=== PATIENT | male | born 1975 | race Two or more races ===

== ENCOUNTER 2019-12-19 07:53 | Outpatient (REF) | payer OTHER, SELFPAY ==
--- NOTE | 2019-12-19 07:58 | MR_ITS ---
EXAMINATION: MRI LEFT SHOULDER WITHOUT CONTRAST CLINICAL INFORMATION: Unspecified disorder of synovium and tendon. Patient reports pain in left shoulder COMPARISON: None. TECHNIQUE: MRI of the left shoulder was performed on a high-field 1.5 [employer] MRI scanner. FINDINGS: ROTATOR CUFF: Infraspinatus: there is a punctate area of intermediate heterogeneity at the insertion of the infraspinatus tendon compatible tendinosis or tiny 1 mm intrasubstance partial tear. Muscle normal. Subscapularis: Small focus of ill-defined increased signal at the insertion likely reflects a small interstitial intrasubstance partial tearing but no measurable defect or tendon retraction. The muscle is normal. Supraspinatus normal. Teres minor normal. BICEPS TENDON: Normal. 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 There is mild concavity of the undersurface of the acromion. There is no subacromial spur. Subacromial subdeltoid bursa: Normal. LABRUM/CAPSULE: Is some mild signal abnormality along the base of the posterior labrum likely reflecting a nondisplaced degenerative tear. Remaining portions of the labrum unremarkable. GLENOHUMERAL JOINT: There are marginal osteophytes along the inferior aspect of the humeral head.d There is subchondral cystic change and cartilage thinning along the posterior rim of the glenoid. There is also high-grade cartilage loss along the apex of the humeral head over approximately 2 cm medial to lateral with associated subchondral cystic change. Overall mild to moderate glenohumeral arthrosis. IMPRESSION: Minimal abnormality of the infraspinatus compatible tendinosis and perhaps small tiny intrasubstance partial tear at the insertion. 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 Nondisplaced degenerative tearing along the base of the posterior labrum Moderate arthrosis of the acromioclavicular joint.
== END 2019-12-19 07:54 | disposition home or self-care (01) ==
LOC: HO.MRI 07:53
PROVIDERS: PCP Internal Medicine; Visit Provider Internal Medicine
DX: M25.512 Pain in left shoulder (principal)
CPT/HCPCS: 73221

== ENCOUNTER → 2020-01-16 09:50 | Outpatient (BNVA) | payer OTHER, SELFPAY | PROVIDERS: PCP Internal Medicine; Referring Provider Internal Medicine; Visit Provider Orthopaedic Surgery | DX: M89.8X1 Other specified disorders of bone, shoulder (principal); M25.512 Pain in left shoulder | CPT/HCPCS: 99202 ==

== ENCOUNTER 2020-02-19 10:07 | Outpatient (RCR) | payer OTHER, SELFPAY ==
--- NOTE | 2020-02-19 14:21 | MHC.PT.EP ---
[facility] [place] Office [place] Office [place] Office [address] Paul Pelaez [address] [phone] F: [phone] F: [phone] F: [phone] F: [phone] Physical Therapy Plan of Care Date of Evaluation: 02/19/20 Date of Surgery: Diagnosis: left shoulder Assessment: The patient has decreased shoulder ROM, and strength, significant trunk kyphosis and hypomobility in his thoracic spine. At this time he is having radicular pain with certain movements and after a Monica mechanical assessment he is showing an extension directional preference. He was educated on posture improvement and behavior modification to decrease pain aggravation. Frequency and Duration: The patient will be seen 2x/week x 4 weeks Short Term Goals: -Pt to able to demonstrate proper sitting posture with the use of a lumbar roll to decrease aggravating factors. - Pt to be able to demonstrate proper posture for common leisure activities such as crocheting and phone/tablet use. 2 weeks - For the patient to demonstrate proper upright sitting posture with use of the lumbar roll to improve compliance and carryover. Chargem[employer] Specialist Goals: 4 weeks - The patient to have greater than 160 degrees of flexion and abduction to show improved functional ROM. 4 weeks ? The patient to have 5/5 strength with flexion and abduction to demonstrate functional strength 4 weeks ? The patient to be able to return to all functional reaching, self care ADL's without any limitation from pain or loss of ROM. Treatment Plan: Modalities to reduce pain, spasms and effusion. Manual therapy to restore motion and function. Therapeutic exercise to improve strength and flexibility. Neuromuscular re-education for posture and balance. Therapeutic activities to return to functional activities of daily living. Electronically signed by: Li Torres PT DPT Please sign and return to therapist. Thank you for your referral.
--- NOTE | 2020-05-15 08:30 | MHC.PT.DC ---
[facility] [place] Office [place] Office [place] Office [address] Paul Pelaez [address] [phone] F: [phone] F: [phone] F: [phone] F: [phone] Physical Therapy Discharge Report Diagnosis: left shoulder Date of Surgery: Date of Evaluation: 02/19/20 Date of Discharge: 03/21/20 Treatments to Date: 1 Cancellations to Date: 0 No Shows to Date: 0 Discharge Status: Visit Non-compliance Discharge Summary: Pt had improvement or centralization with cervical and thoracic extension. The patient was educated on activity modification and extension based exercises for thoracic and cervical spine. Pt did not return to subsequent visits. He did not finish his POC. Electronically signed by: Li Torres PT DPT Please sign and return to therapist. Thank you for your referral.
== END 2020-05-15 09:00 | disposition other institution (70) ==
LOC: HO.PT 10:07
PROVIDERS: PCP Internal Medicine; Visit Provider Orthopaedic Surgery
DX: M89.8X1 Other specified disorders of bone, shoulder (principal)
CPT/HCPCS: 97110; 97112; 97162

== ENCOUNTER → 2020-03-19 08:52 | Outpatient (BNVA) | payer OTHER, SELFPAY | PROVIDERS: PCP Internal Medicine; Visit Provider Surgery | DX: C21.0 Malignant neoplasm of anus, unspecified (principal) | CPT/HCPCS: 46600; 99212 ==

== ENCOUNTER 2021-02-17 10:11 | Outpatient (REF) | payer OTHER, SELFPAY | END 2021-02-17 10:12 | disposition home or self-care (01) | LOC: HO.LAB 10:11 | PROVIDERS: Visit Provider Internal Medicine | DX: Z20.822 Contact with and (suspected) exposure to COVID-19 (principal) | CPT/HCPCS: C9803; U0003; U0005 ==

== ENCOUNTER 2021-07-30 08:06 | Outpatient (REF) | payer OTHER, SELFPAY ==
--- NOTE | ~2021-07-30 | CT_ITS ---
EXAMINATION: CT CHEST, ABDOMEN AND PELVIS WITHOUT CONTRAST CLINICAL INFORMATION: Anal cancer for surveillance. COMPARISON: CT chest without contrast 10/04/2019. TECHNIQUE: 5 mm thin axial and reformatted 3 mm thin sagittal and coronal images of chest, abdomen and pelvis were obtained without contrast. DLP: 784 mGy-cm FINDINGS: CHEST: Lungs: The lungs are well-expanded and clear of acute pneumonic process. No pulmonary nodules, mass or consolidation seen. Minimal atelectatic changes are seen in the lingula. Mediastinum: The thyroid lobes are symmetrical with punctate calcification in the lower pole left thyroid lobe. The central trachea and the bronchi are widely patent. Minimal residual thymic tissue seen in the anterior mediastinum. Heart size and the great vessels are normal caliber. No pericardial effusion seen. Pleura: There is no pleural effusion, thickening or calcification. Axilla: No abnormal-size axillary lymph nodes seen. The chest wall appears unremarkable. ABDOMEN AND PELVIS: Liver, Gallbladder and Biliary Tracts: The liver is normal size, shape and position. No focal lesion seen, however, limited due to lack of IV contrast. No intrahepatic ductal dilatation. There is a solitary gallstone without wall thickening. Spleen: Unremarkable. Pancreas: Unremarkable. Adrenal Glands: Unremarkable. Kidneys, Ureter and Bladder: Both kidneys are normal size, shape and position. There is a nonobstructive 1 mm radiopaque calculi mid pole calyx left kidney sagittal image 31/5. No additional radiopaque calculi seen. Lymphovascular Structures: The abdominal aorta is normal caliber. No abnormal-size retroperitoneal or mesenteric lymph nodes seen. GI Tract: There is scattered stool, oral contrast and gas seen throughout the colon without any significant distention. The appendix and the small-bowel loops are normal caliber. No inflammatory process seen in the abdomen. Abdominal Wall: Unremarkable. Pelvis: The urinary bladder is nondistended. The prostate gland is normal. There is no soft tissue mass in the perineum or lower pelvic region. No abnormal lymph nodes seen. No abnormal-size inguinal or pelvic lymph nodes. Osseous Structures: Unremarkable CT/CT abdomen pelvis wo con IMPRESSION: Unremarkable CT chest exam except for a punctate calcification in the lower pole of left thyroid lobe. Unremarkable abdomen and pelvic exam. Especially no residual mass or lymph nodes seen in the lower pelvis or the perineal region. 1 mm nonobstructive radiopaque calculi mid pole left kidney, new since the previous exam 10/04/2019.
== END 2021-07-30 08:07 | disposition home or self-care (01) ==
LOC: HO.CT 08:06
PROVIDERS: PCP Internal Medicine; Visit Provider Internal Medicine
DX: C21.0 Malignant neoplasm of anus, unspecified (principal)
CPT/HCPCS: 71250; 74176

== ENCOUNTER 2022-02-07 07:05 | Outpatient (REF) | payer OTHER, SELFPAY ==
--- NOTE | ~2022-02-07 | CT_ITS ---
EXAMINATION: CT CHEST WITH CONTRAST CLINICAL INFORMATION: Anal cancer. Increasing CEA. COMPARISON: Previous chest CT July 2021 TECHNIQUE: Multidetector volumetric CT imaging of the chest was obtained after the administration of 85 mL of Omnipaque 350 intravenous contrast without immediate adverse reactions. Axial MIP volume rendering provided. Sagittal and coronal reformatted images were obtained. This CT examination was performed using dose optimization techniques as appropriate, variously including the following: *Automated exposure control *Adjustment of mA and/or kV according to patient size (this includes techniques or standardized protocols for targeted exams where dose is matched to indication/reason for exam; i.e. extremities or head) *Use of iterative reconstruction technique DLP: 187 mGy-cm FINDINGS: LIVESTOCK EXHIBITOR: Unremarkable LUNGS: There is heterogeneous attenuation in the lungs probably representing a mosaic attenuation related to air trapping. The lungs are otherwise clear. No pulmonary nodule. MEDIASTINUM: The mediastinum is normal. There are small mediastinal and bilateral hilar lymph nodes that are stable. No enlarged lymph nodes. PLEURA: There is no pleural effusion. No pleural mass or thickening. AXILLA: No lymphadenopathy. OSSEOUS STRUCTURES: Unremarkable. CT/CT chest w IV con IMPRESSION: No evidence of metastatic disease. Fleischner guidelines were followed.
--- NOTE | ~2022-02-07 | CT_ITS ---
EXAMINATION: CT ABDOMEN AND PELVIS WITH CONTRAST CLINICAL INFORMATION: Anal cancer. Increasing CEA level. COMPARISON: Previous CT of the abdomen and pelvis most recent July 2021 TECHNIQUE: Multidetector volumetric images were obtained from the superior aspect of the liver through the pubic symphysis following administration 85 mL of Omnipaque 350 intravenous contrast. Sagittal and coronal reformatted images were obtained on the technologist's workstation. Oral contrast: Yes This CT examination was performed using dose optimization techniques as appropriate, variously including the following: *Automated exposure control *Adjustment of mA and/or kV according to patient size (this includes techniques or standardized protocols for targeted exams where dose is matched to indication/reason for exam; i.e. extremities or head) *Use of iterative reconstruction technique DLP: 443 mGy-cm FINDINGS: LUNG BASES: The visualized lung bases are unremarkable. LIVER, GALLBLADDER, AND BILIARY TREE: The liver is normal in size, shape, and attenuation. No focal hepatic lesion or biliary ductal dilatation is present. Gallstones. PANCREAS: Unremarkable. SPLEEN: Unremarkable. ADRENAL GLANDS: Unremarkable. KIDNEYS AND URETERS: The kidneys are normal in size, shape, and attenuation. No hydronephrosis, hydroureter, or calculi seen. No perinephric stranding. BLADDER: Unremarkable. GASTROINTESTINAL TRACT: Mild diverticulosis of the colon. The small and large bowel are otherwise unremarkable. The appendix is unremarkable. ABDOMINAL WALL: Small umbilical hernia containing fat. LYMPH NODES: Small bilateral inguinal lymph nodes. No enlarged lymph nodes. VASCULAR: Unremarkable. PELVIC VISCERA: Unremarkable. OSSEOUS STRUCTURES: Unremarkable. CT/CT abdomen pelvis w IV con IMPRESSION: Stable exam. No evidence of metastatic disease. Fleischner guidelines were followed.
[2022-02-07] MEDS: iohexoL 350 MG/ML 100 ML INFUS..BTL IV (09:49)
== END 2022-02-07 07:06 | disposition home or self-care (01) ==
LOC: HO.CT 07:05
PROVIDERS: PCP Internal Medicine; Visit Provider Internal Medicine
DX: C21.0 Malignant neoplasm of anus, unspecified (principal)
CPT/HCPCS: 71260; 74177; Q9967

== ENCOUNTER 2022-07-25 07:27 | Outpatient (REF) | payer OTHER, SELFPAY ==
[2022-07-25 07:38] LABS: MANUAL DIFF FLAG NO
[2022-07-25 08:04] LABS: Basophils Absolute Auto 0.1 X10*3/uL (0.0-0.2); Basophils Percent Auto 1.1 % (0-2); Eosinophils Absolute Auto 0.3 X10*3/uL (0.0-0.4); Eosinophils Percent Auto 3.6 % (0-4); Hematocrit 42.6 % (42.0-52.0); Hemoglobin 14.3 g/dl (14.0-18.0); Imm Gran Abs Auto 0.03 X10*3/uL (0.00-0.03); Imm Gran Pct Auto 0.4 % (0.0-0.4); Lymphocytes Absolute Auto 2.7 X10*3/uL (1.2-4.9); Lymphocytes Percent Auto 32.3 % (20-40); Mean Corpuscular HGB Conc 33.6 g/dl (31.0-36.0); Mean Corpuscular Hemoglobin 31.6 pg (27.0-33.0); Mean Platelet Volume 9.1 fL (9.4-12.4); Monocytes Absolute Auto 0.7 X10*3/uL (0.1-1.2); Monocytes Percent Auto 8.6 % (2-11); Neutrophils Absolute Auto 4.5 x10*3/uL (2.0-8.3); Platelet Count 326 X10*3/uL (160-400); Red Blood Count 4.53 X10*6/uL (4.60-5.80); Red Cell Distribution Width 14.1 % (11.0-16.0); White Blood Count 8.4 X10*3/uL (4.8-10.8)
[2022-07-25 08:41] LABS: Alanine Aminotransferase 24 U/L (0-40); Albumin Level 4.7 g/dL (3.5-5.0); Alkaline Phosphatase 75 U/L (39-117); Anion Gap 14 (12-20); Aspartate Amino Transferase 24 U/L (5-37); Bilirubin Total 0.4 mg/dL (0.0-1.0); Blood Urea Nitrogen 8 mg/dL (9-16); Calcium 9.7 mg/dL (8.4-10.2); Carbon Dioxide 25 mmol/L (22-29); Chloride 102 mmol/L (96-108); Cholesterol 332 mg/dL; Estimated Glomerular Filt Rate 51; Glucose Fasting 99 mg/dL (60-99); HDL Cholesterol 36 mg/dL; LDL Cholesterol Calculated 251 mg/dl; Potassium 4.3 mmol/L (3.3-5.1); Sodium 137 mmol/L (135-145); Total Protein 8.5 g/dL (6.5-8.0); Triglycerides 229 mg/dL
[2022-07-25 09:05] LABS: TSH reflex Free T4 > 100.00 uIU/mL (0.32-4.0); Vitamin D 25-OH Total 10.5 ng/mL (>30)
[2022-07-25 10:00] LABS: Appearance Urine Clear; Color Urine Yellow; Glucose Urine UA Negative (Negative); Leukocyte Esterase Urine Trace (Negative); Nitrite Urine Negative (Negative); PH 6.5 (5.0-9.0); UMIC TRIGGER UACC YES; Urine Blood Negative (Negative); Urine Ketones Trace mg/dL (Negative); Urine Protein Trace mg/dL (Neg-Trace)
[2022-07-25 10:08] LABS: Bacteria Urine None Seen (None Seen); Hyaline Casts Urine 0-2 /LPF (0-2); Squamous Epithelial Cell Urine 0-2 /HPF (0-2); WBC Urine 0-5 /HPF (0-5)
[2022-07-25 10:12] LABS: Free T4 (Free Thyroxine) < 0.42 ng/dL (0.71-1.85)
== END 2022-07-25 07:28 | disposition home or self-care (01) ==
LOC: HO.LAB 07:27
PROVIDERS: Absent Provider Internal Medicine; PCP Internal Medicine; Visit Provider Nurse Practitioner Family
DX: R53.83 Other fatigue (principal); E78.00 Pure hypercholesterolemia, unspecified; E55.9 Vitamin D deficiency, unspecified
CPT/HCPCS: 36415; 80053; 80061; 81001; 81003; 82306; 84439; 84443; 85025

== ENCOUNTER → 2022-08-15 14:57 | Outpatient (REF) | payer OTHER, SELFPAY | LOC: HO.SL 14:57 | PROVIDERS: PCP Internal Medicine; Visit Provider Nurse Practitioner Family | DX: R06.83 Snoring (principal); R53.83 Other fatigue | CPT/HCPCS: 95806 ==

== ENCOUNTER 2023-02-28 12:45 | Outpatient (AMB) | payer OTHER, SELFPAY ==
[2023-02-28 12:48] VITALS: BP 116/78; PULSE 94; O2SAT 96; BMI 30.7
--- NOTE | 2023-02-28 12:48 | A.OFFPC_ITS ---
Vital Signs 02/28/23 12:48 Height 5 ft 11 in Weight 220 lb 3 oz BMI 30.7 BP 116/78 Blood Pressure Location Lt brachial Position Sitting Pulse 94 Pulse Source Pulse Oximeter Pulse Oximetry (%) 96 Oxygen Delivery Method Room Air Intake Visit Reasons: pe Doctor Of Veterinary Medicine Required: No Accompanied by: Self / Same As Patient Allergies shellfish derived Allergy (Unknown, Verified 02/28/23 13:04) Anaphylaxis varenicline Allergy (Unknown, Verified 02/28/23 13:04) mood swings, vomiting barium sulfate Adverse Reaction (Unknown, Verified 02/28/23 13:04) mood swings, vomiting ENVIROMENTAL Allergy (Intermediate, Uncoded 02/28/23 13:04) SWOLLEN EYES Medication List - Last Reconciled 02/28/23 by Jani Guillen MD cholecalciferol (vitamin D3) 50 mcg PO DAILY 90 days levothyroxine 25 mcg PO DAILY 30 days montelukast (Singulair) 10 mg PO DAILY 90 days Ventolin HFA 90 mcg/actuation (albuterol sulfate) 2 puffs inhalation Q6H PRN 90 days NS Tobacco use date assessed: 02/28/23 Dental Screening Dental Screen Date: 02/28/23 Did you have a dental visit in the last 12 months?: Yes Did you have a dental problem in the last 6 months where you did not have access to dental care?: No Was dental information given to patient?: Patient has dentist HPI pe HPI Details Patient comes in today for his annual physical examination States that he feels okay except for increased pain in his right shoulder for the past couple of weeks Does not recall and recent injury or trauma to his right shoulder He denies any headaches or dizziness Denies any chest pains, no SOB No nausea/vomiting, no abdominal pain No change in bowel habits noted He denies any acute urinary symptoms Needs a couple of his Rx refilled Was not able to get his previously ordered labs done prior to his appt today [facility] Medical History (Updated 02/28/23 @ 13:28 by Jani Guillen MD) Mixed hyperlipidemia Vitamin D deficiency Acquired hypothyroidism Obesity (BMI 30-39.9) Allergic rhinitis Pure hypercholesterolemia Rotator cuff tear arthropathy of left shoulder Anal squamous cell carcinoma Diverticulitis Asthma Surgical History (Updated 02/28/23 @ 13:32 by Jani Guillen MD) Squamous cell carcinoma of perianal region (12/18/18) Family History Father No problems noted. Mother History of breast cancer, Onset Age: 49 Daughter In good health Sister In good health Sister In good health Social History Household Members: Children and None Housing: House Are you a primary care support representative to a significant other at home: No Do you presently have visiting nurse or other home services: No Alcohol intake: former Patient Tobacco Use Status: Current everyday Tobacco user Tobacco use type: Cigarette Cigarettes Per Day: 10 e-Cigarette/Vaping Use: Never Used Second Hand Smoke Exposure: No Advance Directives Date on File: 02/13/19 service: No Current occupational status: employed Current occupation: maintenance, right handed Current occupational exposures/hazards: No Cognitive needs: No Hearing needs: No Vision needs: Yes Questionnaire PHQ-9 Over the last 2 weeks, how often have you been bothered by any of the following problems? 1. Little interest or pleasure in doing things: not at all 2. Feeling down, depressed, or hopeless: not at all 3. Trouble falling or staying asleep, or sleeping too much: not at all 4. Feeling tired or having little energy: not at all 5. Poor appetite or overeating: not at all 6. Feeling bad about yourself - or that you are a failure or have let yourself or your family down: not at all 7. Trouble concentrating on things, such as reading the newspaper or watching television: not at all 8. Moving or speaking so slowly that other people could have noticed. Or the opposite - being so fidgety or restless that you have been moving around a lot more than usual: not at all 9. Thoughts that you would be better off or of hurting yourself in some way: not at all Total score: 0 Depression Screening Interpretation: Negative Depression Screening Done: Yes 73505 - PHQ-9 Billing: Yes Source: Developed by Drs. Kenny Vale, Cora Akhtar, Felipe Pineda and colleagues, with an educational remi from [employer]. Thrive Questionnaire Date Thrive assessed: 02/28/23 I am a: Patient What is your living situation today?: I have a steady place to live Within the past 12 months, did the food you bought not last and you didn't have the money to get more?: Never true Within the past 12 months, did you worry whether your food would run out before you got money to buy more?: Never true Do you have trouble paying for medicines?: No Do you have trouble getting transportation to medical appointments?: No Do you have trouble paying your heating and electricity bill?: No Do you have trouble taking care of your child, family member or friend?: No Do you have trouble with day-to-day activities such as bathing, preparing meals, shopping, managing finances, etc.?: No Are you currently unemployed and looking for a job?: No Are you interested in more education?: No Please select the resources that you would like help with: None Currently or been in a relationship where the following occur: no concerns reported AUDIT C Alcohol Use Questionnaire (AUDIT-C) 1. How often do you have a drink containing alcohol?: Monthly or less 2. How many drinks containing alcohol do you have on a typical day when you are drinking?: 3 or 4 3. How often do you have six or more drinks on one occasion?: Never Total Score: 2 Score Reviewed/Action Taken: Yes ROSEANN-7 AMB Questionnaire ROSEANN-7 Date ROSEANN - 7 assessed: 02/28/23 Feeling nervous, anxious, or on edge: 1 = Several days Not being able to stop or control worryin = Not at all Worrying too much about different things: 0 = Not at all Trouble relaxin = Not at all Being so restless that it is hard to sit still: 0 = Not at all Becoming easily annoyed or irritable: 0 = Not at all Feeling afraid as if something awful might happen: 0 = Not at all Total ROSEANN-7 score (0-4 normal; 5-9 mild; 10-14 moderate; 15-21 severe): 1 Source: Developed by Drs. Kenny Vale, Cora Akhtar, Felipe Pineda and colleagues, with an educational remi from [employer]. Review of Systems Const Denies chills, Denies fatigue, Denies fever(s), Denies headache(s), Denies malaise and Denies weakness Eyes Denies blurry vision, Denies change in vision, Denies irritation and Denies it arti eyes ENT Denies dysphagia, Denies dizziness, Denies otalgia, Denies headache(s), Denies nasal congestion, Denies neck pain, Denies odynophagia and Denies sore throat Card Denies chest pain, Denies rapid heart rate, Denies irregular heart rhythm, Denies palpitations and Denies dyspnea Resp Denies chest congestion, Denies cough, Denies dyspnea and Denies wheezing GI Denies abdominal pain, Denies bloating, Denies constipation, Denies dysphagia, Denies heartburn, Denies diarrhea, Denies nausea, Denies odynophagia and Denies vomiting Denies hematuria, Denies difficulty urinating, Denies dysuria, Denies urinary frequency and Denies urinary urgency Musc Denies back pain, Reports arthralgias (increased in the right shoulder), Denies joint swelling, Denies muscle weakness and Denies neck pain Skin/Breast Denies change in pigmentation, Denies lesions, Denies rash and Denies unusual bruising Neuro Denies dizziness, Denies headache(s), Denies paresthesias and Denies weakness Endo Denies fatigue and Denies palpitations Aller/Immun Denies itchy eyes and Denies wheezing Physical exam (Primary Care) Vital Signs: Last Vital Signs Pulse 94 02/28/23 12:48 BP 116/78 02/28/23 12:48 Pulse Ox 96 02/28/23 12:48 Oxygen Delivery Method Room Air 02/28/23 12:48 BMI result Body Mass Index 30.7 Tobacco/Smoking Status: Tobacco use Status Tobacco use date assessed 02/28/23 02/28/23 12:55 Patient Tobacco Use Status Current everyday Tobacco 02/28/23 12:48 Tobacco use type Cigarette 02/28/23 12:48 e-Cigarette/Vaping Use Never Used 02/28/23 12:48 PHQ-9: PHQ-9 Score PHQ-9: Total score 0 02/28/23 12:55 Depression Screening Interpretation: Negative Thrive Assessment: Date of Thrive Assessment Date Thrive assessed 02/28/23 12 12:55 Currently or been in a relationship where the following occur: no concerns reported Const General: no acute distress, alert and awake Orientation/consciousness: patient oriented x3 HENMT Head: Yes normocephalic and Yes atraumatic Ears: external ears normal, TM's normal bilaterally and EAC's normal General nose exam: No nasal discharge present Face and sinus: Yes normal facial exam and Yes sinuses nontender Teeth and gingiva: dentition normal Throat: Yes posterior oropharynx normal and Yes tonsils normal (no TP congestion) Eyes Eyelids: Yes eyelids normal Conjunctivae: conjunctivae normal Pupils: Equal, round and reactive pupils present EOM: EOMs intact bilaterally Neck Neck: Yes no lymphadenopathy and Yes supple Thyroid: Thyroid normal Resp Auscultation: clear to auscultation bilaterally, no rales and no wheezes Cardio Rate: regular rate Rhythm: regular rhythm Heart sounds: no murmurs GI Palpation (GI): Soft to palpation, nontender and No hepatosplenomegaly present Auscultation: normal bowel sounds General: Yes no CVA tenderness Back/Spine/Pelvis Back: no CVA tenderness Thoracic/Lumbar Spine: thoracic and lumbar spine normal to inspection Skin Lesions: no lesions Rashes: no rashes Neuro General: patient oriented x3, moves all extremities, no focal motor deficits and CN's II-XI intact bilaterally Cranial nerves: Yes Equal, round and reactive pupils present Cognition (Neuro): normal cognition Gait exam (Neuro): Normal gait present Extrem General: Yes no clubbing, cyanosis or edema Right upper extremity: shoulder/upper arm Details: tenderness Location: of the A-C joint; no swelling Assessment and Plan Assessment & Plan (1) Annual physical exam: Code(s): Z00.00 - Encounter for general adult medical examination without abnormal findings Plan: Check labs He had a colonoscopy done by Dr. Romero back on 03/14/2018 when he had a severe bout of diverticulitis back then - colonoscopy was negative and he was advised to repeat colonoscopy starting at 47 y/o (2) Mixed hyperlipidemia: Code(s): E78.2 - Mixed hyperlipidemia Plan: Patient reminded that his cholesterol levels were still significantly elevated when they were last checked in July 2022 - total cholesterol was at 332 mg/dl and LDL cholesterol was at 251 mg/dl (they were previously at 196 mg/dl and 135 mg/dl respectively back in 2018) Reinforced low cholesterol diet Will have patient recheck his labs and fasting lipids JULIA for follow up (3) Acquired hypothyroidism: Code(s): E03.9 - Hypothyroidism, unspecified Plan: Continue Levothyroxine 25 mcg QD Will have patient recheck his TFTs JULIA for follow up (4) Asthma: Code(s): J45.909 - Unspecified asthma, uncomplicated Qualifiers: Asthma severity: mild Asthma persistence: persistent Asthma complication type: uncomplicated Qualified Code(s): J45.30 - Mild persistent asthma, uncomplicated Plan: Appears well-controlled on his current Rx Continue Montelukast 10 mg Q PM and Albuterol HFA (Ventolin HFA) 1 to 2 inhalations every 6 hours PRN (Rx refilled) (5) Vitamin D deficiency: Code(s): E55.9 - Vitamin D deficiency, unspecified Plan: Will recheck his Vitamin D level for follow up Was supposed to be on Vitamin D3 2000 units QD but admits that he has not been taking this for a while now (6) Renal insufficiency: Code(s): N28.9 - Disorder of kidney and ureter, unspecified Plan: Cautioned that his serum creatinine and GFR were still slightly compromised when they were last checked a few months ago Advised that his numbers suggest early CKD (stage 3A based on his serum creatinine and GFR) and if they remain consistent, we will need to monitor his renal function closely going forward Patient is again encouraged to increase his oral fluid intake (7) Primary anal squamous cell carcinoma: Comment: diagnosed in 2019; underwent surgical excision on 12/18/2018; clinical stage T2N0 / stage IIA, p 16 negative. Patient underwent adjuvant Tx with concurrent chemoradiotherapy from 03/18/2019 to 05/19/2019 Code(s): C21.0 - Malignant neoplasm of anus, unspecified Plan: S/P surgical excision in 12/2018 Follow up with oncology as scheduled for continuing surveillance (8) Arthralgia: Code(s): M25.50 - Pain in unspecified joint Qualifiers: Joint pain location: unspecified Qualified Code(s): M25.50 - Pain in unspecified joint Plan: Most likely due to tendinopathies of his elbows and shoulders, which he's had in the past Will consider referring to physical therapy for further management if his symptoms progress Have cautioned patient to avoid taking any NSAIDs in light of his recent compromised renal function (9) Right shoulder pain: Code(s): M25.511 - Pain in right shoulder Qualifiers: Chronicity: unspecified Qualified Code(s): M25.511 - Pain in right shoulder Plan: Possible tendinitis or bursitis of the right shoulder Will send him for x-rays of the right shoulder for further evaluation (10) Smoker: Code(s): F17.200 - Nicotine dependence, unspecified, uncomplicated Plan: Counseled again on smoking cessation (11) Obesity (BMI 30-39.9): Code(s): E66.9 - Obesity, unspecified Plan: Reinforced diet/exercise as tolerated/lose weight - he has lost some weight since his last visit (12) Colon cancer screening: Code(s): Z12.11 - Encounter for screening for malignant neoplasm of colon Plan: Will refer him to GI for repeat colonoscopy Plan Follow up in 4 months Orders: Orders Complete Blood Count Auto Diff Today N28.9 - Disorder of kidney and ureter, unspecified, Z00.00 - Encounter for general adult medical examination without abnormal findings Thyroid Stimulating Hormone Today E03.9 - Hypothyroidism, unspecified, N28.9 - Disorder of kidney and ureter, unspecified, Z00.00 - Encounter for general adult medical examination without abnormal findings Free T4 (Free Thyroxine) Today E03.9 - Hypothyroidism, unspecified, N28.9 - Disorder of kidney and ureter, unspecified, Z00.00 - Encounter for general adult medical examination without abnormal findings Comprehensive [place]. Panel Fast Today E78.00 - Pure hypercholesterolemia, unspecified, N28.9 - Disorder of kidney and ureter, unspecified, Z00.00 - Enc ounter for general adult medical examination without abnormal findings Lipid Panel Today E78.00 - Pure hypercholesterolemia, unspecified, N28.9 - Disorder of kidney and ureter, unspecified, Z00.00 - Encounter for general adult medical examination without abnormal findings UA CC w/rflx Micro + Cult Today N28.9 - Disorder of kidney and ureter, un specified, R30.0 - Dysuria, Z00.00 - Encounter for general adult medical examination without abnormal findings Vitamin D 25-OH Total Today E55.9 - Vitamin D deficiency, unspecified, N28.9 - Disorder of kidney and ureter, unspecified, Z00.00 - Encounter for general adult medical examination without abnormal findings Erythrocyte Sedimentation Rate Today M25.511 - Pain in right shoulder XR shoulder RT min 2V Today M25.511 - Pain in right shoulder Referrals Gastroenterology Referral Z12.11 - Encounter for screening for malignant neoplasm of colon Medications: Refilled levothyroxine Take on an empty stomach, first thing in the morning, with water. Do not eat or drink anything else for 30 minutes afterwards 25 mcg PO DAILY 30 days 90 tabs 3RF E03.9 - Hypothyroidism, unspecified Ventolin HFA 90 mcg/actuation (albuterol sulfate) 2 puffs inhalation Q6H 90 days PRN 18 grams 3RF Shortness Of Breath Or Wheezing NS J45.30 - Mild p ersistent asthma, uncomplicated Coding Level of Care Code Est Pt Prev Care 40-64y(15606) Diagnoses Annual physical exam Z00.00 Mixed hyperlipidemia E78.2 Acquired hypothyroidism E03.9 Mild persistent asthma without complication J45.30 Asthma severity: mild Asthma persistence: persistent Asthma complication type: uncomplicated Vitamin D deficiency E55.9 Renal insufficiency N28.9 Primary anal squamous cell carcinoma C21.0 Arthralgia, unspecified joint M25.50 Joint pain location: unspecified Right shoulder pain, unspecified chronicity M25.511 Chronicity: unspecified Smoker F17.200 Obesity (BMI 30-39.9) E66.9 Colon cancer screening Z12.11
== END 2023-02-28 13:34 | disposition home or self-care (01) ==
PROVIDERS: PCP Internal Medicine; Visit Provider Internal Medicine
DX: Z00.00 Encounter for general adult medical examination without abnormal findings (principal); C21.0 Malignant neoplasm of anus, unspecified; E78.2 Mixed hyperlipidemia; E03.9 Hypothyroidism, unspecified; J45.30 Mild persistent asthma, uncomplicated; E55.9 Vitamin D deficiency, unspecified; N28.9 Disorder of kidney and ureter, unspecified; M25.50 Pain in unspecified joint; M25.511 Pain in right shoulder; F17.200 Nicotine dependence, unspecified, uncomplicated; E66.9 Obesity, unspecified; Z12.11 Encounter for screening for malignant neoplasm of colon
CPT/HCPCS: 99396

== ENCOUNTER 2023-03-29 09:30 | Outpatient (REF) | payer OTHER, SELFPAY ==
--- NOTE | ~2023-03-29 | XR_ITS ---
EXAMINATION: XR SHOULDER, RIGHT CLINICAL INFORMATION: Pain. COMPARISON: None available. TECHNIQUE: AP external rotation, Grashey, scapular Y, and axillary views of the right shoulder. FINDINGS: Bony alignment and mineralization are normal. The glenohumeral joint is intact. The acromioclavicular interval is widened to 1.2 cm. A small well-corticated osseous fragment is seen superior to the head of the right clavicle. The coracoclavicular interval is normal. No acute fracture is seen. There is no soft tissue calcification or foreign body. No right pneumothorax is seen. XR/XR shoulder RT min 2V IMPRESSION: A mild right acromioclavicular separation injury is seen, of indeterminate chronicity.
[2023-03-29 09:44] LABS: MANUAL DIFF FLAG NO
[2023-03-29 09:59] LABS: Basophils Absolute Auto 0.1 X10*3/uL (0.0-0.2); Basophils Percent Auto 1.2 % (0-2); Eosinophils Absolute Auto 0.2 X10*3/uL (0.0-0.4); Eosinophils Percent Auto 2.4 % (0-4); Hematocrit 44.8 % (42.0-52.0); Hemoglobin 15.3 g/dl (14.0-18.0); Imm Gran Abs Auto 0.03 X10*3/uL (0.00-0.03); Imm Gran Pct Auto 0.3 % (0.0-0.4); Lymphocytes Absolute Auto 2.1 X10*3/uL (1.2-4.9); Lymphocytes Percent Auto 22.6 % (20-40); Mean Corpuscular HGB Conc 34.2 g/dl (31.0-36.0); Mean Corpuscular Hemoglobin 31.2 pg (27.0-33.0); Mean Corpuscular Volume 91.2 fL (80.0-98.0); Mean Platelet Volume 9.1 fL (9.4-12.4); Monocytes Absolute Auto 0.8 X10*3/uL (0.1-1.2); Neutrophils Absolute Auto 6.2 x10*3/uL (2.0-8.3); Neutrophils Percent Auto 65.5 % (45-73); Platelet Count 357 X10*3/uL (160-400); Red Blood Count 4.91 X10*6/uL (4.60-5.80); Red Cell Distribution Width 13.1 % (11.0-16.0); White Blood Count 9.5 X10*3/uL (4.8-10.8)
[2023-03-29 10:38] LABS: Alanine Aminotransferase 24 U/L (0-40); Albumin Level 4.4 g/dL (3.5-5.0); Alkaline Phosphatase 86 U/L (39-117); Anion Gap 12 (12-20); Aspartate Amino Transferase 21 U/L (5-37); Bilirubin Total 0.3 mg/dL (0.0-1.0); Blood Urea Nitrogen 9 mg/dL (9-16); Calcium 9.9 mg/dL (8.4-10.2); Carbon Dioxide 25 mmol/L (22-29); Chloride 103 mmol/L (96-108); Cholesterol 241 mg/dL (<200); Estimated Glomerular Filt Rate 58; Glucose Fasting 96 mg/dL (60-99); HDL Cholesterol 38 mg/dL (>40); LDL Cholesterol Calculated 160 mg/dL (<100); Potassium 4.1 mmol/L (3.3-5.1); Sodium 136 mmol/L (135-145); Total Protein 8.2 g/dL (6.5-8.0); Triglycerides 215 mg/dL (<150)
[2023-03-29 10:41] LABS: Erythrocyte Sedimentation Rate 6 MM/HR (0-15)
[2023-03-29 10:57] LABS: Thyroid Stimulating Hormone 30.34 uIU/mL (0.32-4.0); Vitamin D 25-OH Total 23.6 ng/mL (>30)
[2023-03-29 11:52] LABS: Appearance Urine Clear; Color Urine Yellow; Glucose Urine UA Negative (Negative); Leukocyte Esterase Urine Negative (Negative); Nitrite Urine Negative (Negative); Specific Gravity - Urine 1.015 (1.005-1.025); Urine Blood Negative (Negative); Urine Ketones Negative (Negative); Urine Protein Negative (Neg-Trace)
[2023-03-29 12:54] LABS: Creatinine Urine 125.38 mg/dL; Microalbumin Urine < 5.0 mg/L
== END 2023-03-29 09:31 | disposition home or self-care (01) ==
LOC: HO.LAB 09:30
PROVIDERS: PCP Internal Medicine; Visit Provider Internal Medicine
DX: Z00.00 Encounter for general adult medical examination without abnormal findings (principal); E78.2 Mixed hyperlipidemia; E78.00 Pure hypercholesterolemia, unspecified; N28.9 Disorder of kidney and ureter, unspecified; E03.9 Hypothyroidism, unspecified; F17.200 Nicotine dependence, unspecified, uncomplicated; R30.0 Dysuria; E55.9 Vitamin D deficiency, unspecified; M25.511 Pain in right shoulder
CPT/HCPCS: 36415; 73030; 80053; 80061; 81003; 82043; 82306; 82570; 84439; 84443; 85025; 85652

== ENCOUNTER 2023-04-25 11:54 | Outpatient (AMB) | payer OTHER, SELFPAY ==
--- NOTE | 2023-04-25 11:56 | A.OFFVIS_ITS ---
Intake Vital Signs 04/25/23 12:20 Height 5 ft 11 in Weight 224 lb 13.944 oz BMI 31.4 BP 119/81 Blood Pressure Location Rt brachial Position Sitting Pulse 84 Intake Visit Reasons: colonoscopy Screening Intake Note: Patient presents to in office visit today as a new patient for colonoscopy screening. CC: Patient had a colonoscopy done in 03/19/[address] Julio. 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 He is referred by Jani George of [facility] primary care. PMX Asthma Allergic rhinitis Smoker Hypothyroid High cholesterol Renal insufficiency History of rectal cancer Left shoulder tendinopathy with rotator cuff tear History of diverticulitis * SURGICAL HISTORY Surgical excision of rectal carcinoma-[place] * ALLERGIES Shellfish Chantix Barium * [facility]: Laboratory Tests 03/29/23 09:43 WBC 9.5 Hgb 15.3 Hct 44.8 Plt Count 357 Estimated GFR 58 Total Bilirubin 0.3 AST 21 ALT 24 Alkaline Phosphata se 86 TSH 30.34 H Free T4 0.50 L 2019 COLONOSCOPY-[place] PROCEDURE IN DETAIL: Digital rectal examination revealed prostate to be unremarkable. Videocolonoscope was introduced without difficulty. It was navigated into the rectosigmoid sigmoid and up through the descending, transverse, and ascending colon down into the cecal cap. The appendiceal orifice was seen. The ileocecal valve was seen. No mucosal abnormalities were appreciated. The prep was poor. There was a moderate amount of soft solid stool present at the time of the exam. Areas were flushed and suctioned. The scope was slowly withdrawn. Good rotational views. The anorectal verge was clear. In the rectum, there was a diminutive polyp that looked slightly hyperplastic. With his age and past history, it was reasonable to remove this excisionally with cold biopsy forceps. GENERAL IMPRESSION: Negative examination. Rectal polyp. The patient's bout of diverticulitis was in October of 2017. CT showed left-sided lower descending acute diverticulitis. No abscess formation. There was moderate bowel wall thickening at the site and it was felt that because of the area of thickening, a colonoscopy should be done to make sure that there was no underlying lesion present. Current examination had a substandard prep due to the patient's lack of following through on directions. PLAN: I would suggest that when he is re-seen in our office, repeat CBC and stool for occult blood is done. Certainly, I would recommend appropriate colon cancer screening to start at age 47. Further evaluation at this time if everything is negative is probably not necessary. Rupali Romero MD cc: JANI GEORGE MD 03/14/2018 BIOPSY SHOWED HYPERPLASTIC RECTAL POLYP TODAY'S VISIT The only new health problem is hypothyroid, quite severe and they are still titrating the medications. He has changed his diet and is doing IMF and this helps with bloating and gassin ess. Discovering the thyroid disease also helped. His asthma is controlled and he denies any cardiac problems. He was tested for RUBIN but it was negative. There are no prior problems with anesthesia or sedation. NO ID problems. He has a hx of anal cell cancer, but in 2019 his polyps was hyperplastic only. [facility] Medical History (Updated 04/25/23 @ 12:47 by CARMEN Sheikh) Right shoulder pain Obesity (BMI 30-39.9) Annual physical exam Overweight (BMI 25.0-29.9) Anal squamous cell carcinoma Mixed hyperlipidemia Vitamin D deficiency Acquired hypothyroidism Allergic rhinitis Pure hypercholesterolemia Rotator cuff tear arthropathy of left shoulder Diverticulitis Asthma Surgical History H/O colonoscopy Squamous cell carcinoma of perianal region (12/18/18) Family History Father No problems noted. Mother History of breast cancer, Onset Age: 49 Daughter In good health Sister In good health Sister In good health Paternal Uncle Prostate cancer Social History Household Members: Children and None Housing: House Are you a primary health care manager to a significant other at home: No Do you presently have visiting nurse or other home services: No Alcohol intake: former Patient Tobacco Use Status: Current everyday Tobacco user Tobacco use type: Cigarette Cigarettes Per Day: 10 e-Cigarette/Vaping Use: Never Used Second Hand Smoke Exposure: No Advance Directives Date on File: 02/13/19 service: No Current occupational status: employed Current occupation: maintenance, right handed Current occupational exposures/hazards: No Cognitive needs: No Hearing needs: No Vision needs: Yes Review of Systems Const Reports fatigue, Denies fever(s), Denies night sweats, Denies poor appetite, Reports weight gain and Denies weight loss Eyes Details: glasses Reports requires corrective lenses ENT Reports Normal hearing present, Denies dental pain, Denies dysphagia, Denies hearing loss, Denies mouth pain, Denies odynophagia, Denies throat swelling, Denies tongue swelling and Reports other (Dentition adequate) Card Reports no additional complaints Resp Reports no additional complaints GI Details: Denies abdominal pain, Denies melena, Reports bloating, Denies hematochezia, Denies constipation, Denies GI cramping, Denies dysphagia, Denies excessive flatus, Denies early satiety, Denies heartburn, Denies diarrhea, Denies nausea, Denies odynophagia, Denies vomiting and Denies hematemesis Musc Reports myalgias and Reports arthralgias Skin/Breast Denies pruritus, Denies lesions, Denies rash and Denies jaundice Neuro Reports Normal hearing present and Denies Abnormal speech present Endo Reports fatigue Aller/Immun Denies throat swelling and Denies tongue swelling Physical Exam Vital Signs: Last Vital Signs Pulse 84 04/25/23 12:20 BP 119/81 04/25/23 12:20 BMI result Body Mass Index 31.4 Const General: cooperative, no acute distress, well developed and well groomed Nutritional Appearance: well nourished, obese and overweight Orientation/consciousness: oriented to person, oriented to place and oriented to time Limitations: No language barrier, ambulation with cane, ambulation with walker and wheelchair HEENT Head: Yes normocephalic and Yes atraumatic Eyes General: appearance normal, both eyes and all related structures Pupils: Equal, round and reactive pupils present Neck Neck: Yes normal visual inspection and Yes no lymphadenopathy Thyroid: Thyroid normal Resp Effort & Inspection: normal respiratory effort and able to speak in complete sentences Auscultation: clear to auscultation bilaterally Cardio Rate: regular rate Rhythm: regular rhythm Heart sounds: Normal, physiologic split S2 sound present Peripheral pulses: radial pulses present and posterior tibial pulses present GI Inspection: No distended, No Abdominal panniculus present and Yes obesity Palpation (GI): Soft to palpation, nontender, no guarding, not rigid and No hepatosplenomegaly present Percussion: Yes normal to percussion Auscultation: normal bowel sounds Rectal Exam - Male: Yes deferred Skin General skin exam: no rashes or lesions noted, turgor normal, skin not dry, no jaundice, No spider nevi and no striae Rashes: no rashes Nails: normal Neuro General: oriented to person, oriented to place and oriented to time Cranial nerves: Yes Equal, round and reactive pupils present and Yes Normal hearing present Speech: No Abnormal speech present Extrem General: Yes normal to inspection, No clubbing, No cyanosis and No edema Psych Appearance: grossly normal and well kempt Mental Status: mental status grossly normal Speech and movement: Normal speech and movement present Affect: normal affect Attitude: cooperative Thought process: Normal thought process present and not confabulating Thought content: Normal thought content present Insight: Fair insight present (Psych) Judgement: Fair judgement present (Psych) Assessment & Plan Assessment & Plan (1) Pre-op examination: Code(s): Z01.818 - Encounter for other preprocedural examination (2) Colon cancer screening: Code(s): Z12.11 - Encounter for screening for malignant neoplasm of colon (3) Primary anal squamous cell carcinoma: Comment: diagnosed in 2019; underwent surgical excision on 12/18/2018; clinical stage T2N0 / stage IIA, p 16 negative. Patient underwent adjuvant Tx with concurrent chemoradiotherapy from 03/18/2019 to 05/19/2019 Code(s): C21.0 - Malignant neoplasm of anus, unspecified Plan The only new health problem is hypothyroid, quite severe and they are still titrating the medications. He has changed his diet and is doing IMF and this helps with bloating and g assiness. Discovering the thyroid disease also helped. His asthma is controlled and he denies any cardiac problems. He was tested for RUBIN but it was negative. There are no prior problems with anesthesia or sedation. NO ID problems. He has a hx of anal cell cancer, but in 2019 his polyps was hyperplastic only. Orders: Orders Colonoscopy - GI Use Only Today C21.0 - Malignant neoplasm of anus, unspecified, Z01.818 - Encounter for other preprocedural examination, Z12.11 - Encounter for screening for malignant neoplasm of colon Medications: New peg 3350-electrolytes 236-22.74-6.74 -5.86 gram (Golytely) until fecal effluent is clear; do not exceed a total volume of 2,000 mL 240 mL PO Q10M 1 day 4,000 mL 0RF Z12.11 - Encounter for screening for malignant neoplasm of colon bisacodyl (Dulcolax (bisacodyl)) 10 mg (2 x 5 mg) PO BEDTIME 2 days 4 tabs 0RF Coding Level of Care Code New Pt Level 3 (35351) Diagnoses Pre-op examination Z01.818 Colon cancer screening Z12.11 Primary anal squamous cell carcinoma C21.0
[2023-04-25 12:20] VITALS: BP 119/81; PULSE 84; BMI 31.4
== END 2023-04-25 13:44 | disposition home or self-care (01) ==
PROVIDERS: PCP Internal Medicine; Visit Provider Nurse Practitioner
DX: Z01.818 Encounter for other preprocedural examination (principal); Z12.11 Encounter for screening for malignant neoplasm of colon; C21.0 Malignant neoplasm of anus, unspecified
CPT/HCPCS: 99203

== ENCOUNTER → 2023-04-25 11:54 | Outpatient (BNVA) | payer OTHER, SELFPAY | PROVIDERS: PCP Internal Medicine; Visit Provider Nurse Practitioner | DX: Z01.818 Encounter for other preprocedural examination (principal); Z12.11 Encounter for screening for malignant neoplasm of colon; C21.0 Malignant neoplasm of anus, unspecified | CPT/HCPCS: 99202 ==

== ENCOUNTER 2024-03-01 12:52 | Outpatient (REF) | payer OTHER, SELFPAY ==
--- NOTE | ~2024-03-01 | XR_ITS ---
CLINICAL HISTORY: M25.512 - Pain in left shoulder Four views of the left shoulder. COMPARISON: None FINDINGS: Proximal left humerus, the left scapula, and the left clavicle appear intact. Decreased glenohumeral joint space. Prominent osteophytes present along the inferior margin of the humeral head. Widening of the acromioclavicular joint measuring up to 1.5 cm. Coracoclavicular space is maintained. Visualized portions of the left lung are clear. IMPRESSION: 1. Age-indeterminate type 2 acromioclavicular joint injury. 2. [id number] glenohumeral joint degenerative changes. This document has been electronically signed by: Cesario Sin MD on 03/04/2024 19:12:36
--- NOTE | ~2024-03-01 | XR_ITS ---
CLINICAL HISTORY: M25.511 - Pain in right shoulder Radiographs of the right shoulder. COMPARISON: None FINDINGS: Widening of the right acromioclavicular joint measuring up to 1.3 cm. Coracoclavicular joint space is maintained. Humeral head is appropriately seated within the glenoid. Visualized portions of the proximal humerus, scapula and the clavicle appear intact. Tiny osteophytes present along the inferior margin of the glenoid and humeral head. Visualized portions of the right lung are clear. IMPRESSION: 1. Type 2 acromioclavicular joint injury, age-indeterminate. 2. Mild degenerative changes of the glenohumeral joint. This document has been electronically signed by: Cesario Sin MD on 03/04/2024 17:15:55
== END 2024-03-01 12:53 | disposition home or self-care (01) ==
LOC: HO.XRAY 12:52
PROVIDERS: PCP Internal Medicine; Visit Provider Internal Medicine
DX: Z00.01 Encounter for general adult medical examination with abnormal findings (principal); M25.511 Pain in right shoulder; M25.512 Pain in left shoulder; N28.9 Disorder of kidney and ureter, unspecified; E55.9 Vitamin D deficiency, unspecified; E78.2 Mixed hyperlipidemia; E03.9 Hypothyroidism, unspecified; J45.30 Mild persistent asthma, uncomplicated; C21.0 Malignant neoplasm of anus, unspecified; E66.9 Obesity, unspecified; F17.200 Nicotine dependence, unspecified, uncomplicated; Z71.6 Tobacco abuse counseling
CPT/HCPCS: 73030; 96127

== ENCOUNTER 2024-03-01 12:52 | Outpatient (AMB) | payer OTHER, SELFPAY ==
[2024-03-01 12:53] VITALS: BP 108/72; PULSE 75; O2SAT 99
--- NOTE | 2024-03-01 12:53 | A.OFFPC_ITS ---
Vital Signs 03/01/24 12:53 Height 5 ft 11 in Weight 215 lb BMI 30.0 BP 108/72 Blood Pressure Location Lt brachial Position Sitting Pulse 75 Pulse Source Pulse Oximeter Pulse Oximetry (%) 99 Oxygen Delivery Method Room Air Intake Visit Reasons: Annual Exam Soaking Room Operator Required: No Accompanied by: Self / Same As Patient Allergies shellfish derived Allergy (Unknown, Verified 03/01/24 13:15) Anaphylaxis varenicline Allergy (Unknown, Verified 03/01/24 13:15) mood swings, vomiting barium sulfate Adverse Reaction (Unknown, Verified 03/01/24 13:15) mood swings, vomiting ENVIROMENTAL Allergy (Intermediate, Uncoded 03/01/24 13:15) SWOLLEN EYES Medication List - Last Reconciled 03/01/24 by Jani Guillen MD bisacodyl (Dulcolax (bisacodyl)) 10 mg (2 x 5 mg) PO BEDTIME 2 days cholecalciferol (vitamin D3) 50 mcg PO DAILY 90 days levothyroxine 50 mcg PO DAILY 30 days montelukast (Singulair) 10 mg PO DAILY 90 days peg 3350-electrolytes 236-22.74-6.74 -5.86 gram (Golytely) 240 mL PO Q10M 1 day Ventolin HFA 90 mcg/actuation (albuterol sulfate) 2 puffs inhalation Q6H PRN 90 days NS Tobacco use date assessed: 03/01/24 Dental Screening Dental Screen Date: 03/01/24 HPI Annual Exam HPI Details Patient comes in today for his annual physical examination States that he has been experiencing increased pain in both of his shoulders ( worse on the right side) for a while now and feels that his shoulder pains have been slowly getting worse lately Imaging studies of his shoulders done last year revealed (+) mild right acromioclavicular separation injury of indeterminate chronicity on x-rays He also had an MRI of the left shoulder done back in 2019 that revealed findings of infraspinatus tendinosis and a possible tiny intrasubstance partial tear at the insertion of the infraspinatus tendon, as well as mild to moderate glenohumeral arthrosis, moderate arthrosis of the acromioclavicular joint and non-displaced degenerative tearing along the base of the posterior labrum States that he has tried taking some of his dad's Tramadol at night recently just to be able to get some sleep States that he feels okay otherwise He denies any headaches or dizziness Denies any chest pains, no SOB No nausea/vomiting, no abdominal pain No change in bowel habits noted He denies any acute urinary symptoms States that he has not been taking any of his medications, including his levothyroxine, for a while now as he did not have any health insurance coverage for a while and that is also the reason his colonoscopy was never done He currently only has his Ventolin inhaler that he uses as needed [facility] Medical History (Updated 03/03/24 @ 15:10 by Jani Guillen MD) Obesity (BMI 30-39.9) Annual physical exam Right shoulder pain Overweight (BMI 25.0-29.9) Anal squamous cell carcinoma Mixed hyperlipidemia Vitamin D deficiency Acquired hypothyroidism Allergic rhinitis Pure hypercholesterolemia Rotator cuff tear arthropathy of left shoulder Diverticulitis Asthma Surgical History H/O colonoscopy Squamous cell carcinoma of perianal region (12/18/18) Family History Father No problems noted. Mother History of breast cancer, Onset Age: 49 Daughter In good health Sister In good health Sister In good health Paternal Uncle Prostate cancer Social History Household Members: Children and None Housing: House Are you a primary career professional to a significant other at home: No Do you presently have visiting nurse or other home services: No Alcohol intake: former Patient Tobacco Use Status: Current everyday Tobacco user Tobacco use type: Cigarette Cigarettes Per Day: 10 e-Cigarette/Vaping Use: Never Used Second Hand Smoke Exposure: No Advance Directives Date on File: 02/13/19 service: No Current occupational status: employed Current occupation: maintenance, right handed Current occupational exposures/hazards: No Cognitive needs: No Hearing needs: No Vision needs: Yes Questionnaire PHQ-9 Over the last 2 weeks, how often have you been bothered by any of the following problems? 1. Little interest or pleasure in doing things: not at all 2. Feeling down, depressed, or hopeless: not at all 3. Trouble falling or staying asleep, or sleeping too much: not at all 4. Feeling tired or having little energy: not at all 5. Poor appetite or overeating: not at all 6. Feeling bad about yourself - or that you are a failure or have let yourself or your family down: not at all 7. Trouble concentrating on things, such as reading the newspaper or watching television: not at all 8. Moving or speaking so slowly that other people could have noticed. Or the opposite - being so fidgety or restless that you have been moving around a lot more than usual: not at all 9. Thoughts that you would be better off or of hurting yourself in some way: not at all Total score: 0 Depression Screening Interpretation: Negative Depression Screening Done: Yes 60871 - PHQ-9 Billing: Yes Source: Developed by Drs. Kenny Vale, Cora Akhtar, Felipe Pineda and colleagues, with an educational remi from [employer]. Thrive Questionnaire Date Thrive assessed: 03/01/24 I am a: Patient What is your living situation today?: I have a steady place to live Within the past 12 months, did the food you bought not last and you didn't have the money to get more?: Never true Within the past 12 months, did you worry whether your food would run out before you got money to buy more?: Never true Do you have trouble paying for medicines?: No Do you have trouble getting transportation to medical appointments?: No Do you have trouble paying your heating and electricity bill?: No Do you have trouble taking care of your child, family member or friend?: No Do you have trouble with day-to-day activities such as bathing, preparing meals, shopping, managing finances, etc.?: No Are you currently unemployed and looking for a job?: No Are you interested in more education?: No Please select the resources that you would like help with: None Currently or been in a relationship where the following occur: No concerns reported THRIVE Score: 0 AUDIT C Alcohol Use Questionnaire (AUDIT-C) 1. How often do you have a drink containing alcohol?: Monthly or less 2. How many drinks containing alcohol do you have on a typical day when you are drinking?: 3 or 4 3. How often do you have six or more drinks on one occasion?: Never Total Score: 2 Score Reviewed/Action Taken: Yes ROSEANN-7 AMB Questionnaire ROSEANN-7 Date ROSEANN - 7 assessed: 03/01/24 Feeling nervous, anxious, or on edge: 0 = Not at all Not being able to stop or control worryin = Not at all Worrying too much about different things: 0 = Not at all Trouble relaxin = Not at all Being so restless that it is hard to sit still: 0 = Not at all Becoming easily annoyed or irritable: 0 = Not at all Feeling afraid as if something awful might happen: 0 = Not at all Total ROSEANN-7 score (0-4 normal; 5-9 mild; 10-14 moderate; 15-21 severe): 0 Source: Developed by Drs. Kenny Vlae, Cora Akhtar, Felipe Pineda and colleagues, with an educational remi from [employer]. Review of Systems Const Denies chills, Denies fatigue, Denies fever(s), Denies headache(s), Denies malaise and Denies weakness Eyes Denies blurry vision, Denies change in vision, Denies irritation and Denies itchy eyes ENT Denies dysphagia, Denies dizziness, Denies otalgia, Denies headache(s), Denies nasal congestion, Denies neck pain, Denies odynophagia and Denies sore throat Card Denies chest pain, Denies rapid heart rate, Denies irregular heart rhythm, Denies palpitations and Denies dyspnea Resp Denies chest congestion, Denies cough, Denies dyspnea and Denies wheezing GI Denies abdominal pain, Denies bloating, Denies constipation, Denies dysphagia, Denies heartburn, Denies diarrhea, Denies nausea, Denies odynophagia and Denies vomiting Denies hematuria, Denies difficulty urinating, Denies dysuria, Denies urinary frequency and Denies urinary urgency Musc Denies back pain, Reports arthralgias (in both shoulders - see HPI), Denies joint swelling, Denies muscle weakness and Denies neck pain Skin/Breast Denies change in pigmentation, Denies lesions, Denies rash and Denies unusual bruising Neuro Denies dizziness, Denies headache(s), Denies paresthesias and Denies weakness Endo Denies fatigue and Denies palpitations Aller/Immun Denies itchy eyes and Denies wheezing Physical exam (Primary Care) Vital Signs: Last Vital Signs Pulse 75 03/01/24 12:53 BP 108/72 03/01/24 12:53 Pulse Ox 99 03/01/24 12:53 Oxygen Delivery Method Room Air 03/01/24 12:53 BMI result Body Mass Index 30.0 Tobacco/Smoking Status: Tobacco use Status Tobacco use date assessed 03/01/24 03/01/24 12:58 Patient Tobacco Use Status Current everyday Tobacco 03/01/24 12:58 Tobacco use type Cigarette 03/01/24 12:58 e-Cigarette/Vaping Use Never Used 03/01/24 12:58 PHQ-9: PHQ-9 Score PHQ-9: Total score 0 03/01/24 13:23 Depression Screening Interpretation: Negative Thrive Assessment: Date of Thrive Assessment Date Thrive assessed 03/01/24 03/01/24 12:58 Currently or been in a relationship where the following occur: No concerns reported Const General: no acute distress, alert and awake Orientation/consciousness: patient oriented x3 HENMT Head: Yes normocephalic and Yes atraumatic Ears: external ears normal, TM's normal bilaterally and EAC's normal General nose exam: No nasal discharge present Face and sinus: Yes normal facial exam and Yes sinuses nontender Teeth and gingiva: dentition normal Throat: Yes posterior oropharynx normal and Yes tonsils normal (no TP congestion) Eyes Eyelids: Yes eyelids normal Conjunctivae: conjunctivae normal Pupils: Equal, round and reactive pupils present EOM: EOMs intact bilaterally Neck Neck: Yes no lymphadenopathy and Yes supple Thyroid: Thyroid normal Resp Auscultation: clear to auscultation bilaterally, no rales and no wheezes Cardio Rate: regular rate Rhythm: regular rhythm Heart sounds: no murmurs GI Palpation (GI): Soft to palpation, nontender and No hepatosplenomegaly present Auscultation: normal bowel sounds General: Yes no CVA tenderness Back/Spine/Pelvis Back: no CVA tenderness Thoracic/Lumbar Spine: thoracic and lumbar spine normal to inspection Skin Lesions: no lesions Rashes: no rashes Neuro General: patient oriented x3, moves all extremities, no focal motor deficits and CN's II-XI intact bilaterally Cranial nerves: Yes Equal, round and reactive pupils present Cognition (Neuro): normal cognition Gait exam (Neuro): Normal gait present Extrem General: Yes no clubbing, cyanosis or edema Right upper extremity: shoulder/upper arm Details: tenderness Location: of the A-C joint Left upper extremity: shoulder/upper arm Details: tenderness Location: of the A- C joint Coding Level of Care Code Est Pt Prev Care 40-64y(46495) Diagnoses Annual physical exam Z00.00 Mixed hyperlipidemia E78.2 Acquired hypothyroidism E03.9 Mild persistent asthma without complication J45.30 Asthma severity: mild Asthma persistence: persistent Asthma complication type: uncomplicated Vitamin D deficiency E55.9 Renal insufficiency N28.9 Primary anal squamous cell carcinoma C21.0 Bilateral shoulder pain, unspecified chronicity M25.511; M25.512 Chronicity: unspecified Smoker F17.200 Obesity (BMI 30-39.9) E66.9 Colon cancer screening Z12.11 Additional Codes PHQ-9 - 20377 - PHQ-9 Billing: Yes ([id number]) Assessment & Plan Assessment & Plan (1) Annual physical exam: Code(s): Z00.00 - Encounter for general adult medical examination without abnormal findings Category: Medical Plan: Check labs He is also due for colon cancer screening and will refer him again to gastroenterology for this (2) Mixed hyperlipidemia: Code(s): E78.2 - Mixed hyperlipidemia Category: Medical Plan: Have reminded patient that his cholesterol levels were still elevated when they were last checked in March 2023, with his total cholesterol at 241 mg/dL, triglyceride at 215 mg/dL and LDL cholesterol at 160 mg/dL although these have improved from his numbers back in 2022 Reinforce low-cholesterol diet - goal is LDL cholesterol of least 130 mg/dL or less and total cholesterol of 200 mg/dL or less Will recheck his fasting lipids for follow-up and advised that if his numbers have not improved further from his previous or if they have gotten worse, will need to consider starting him on cholesterol-lowering medications (3) Acquired hypothyroidism: Code(s): E03.9 - Hypothyroidism, unspecified Category: Medical Plan: Patient was supposed to be on levothyroxine 50 mcg daily but he stopped taking this a few months ago when his health insurance coverage lapsed States that he has not gone back on his medications since as he does not have any prescription at this time - notes that he does not feel any different since he stopped taking his medication Will have him recheck his TFTs for now and will start him back on levothyroxine only if necessary, depending on how his labs come out (4) Asthma: Code(s): J45.909 - Unspecified asthma, uncomplicated Category: Medical Qualifiers: Asthma severity: mild Asthma persistence: persistent Asthma complication type: uncomplicated Qualified Code(s): J45.30 - Mild persistent asthma, uncomplicated Plan: Stable - he also has not been taking his Montelukast for a while now and states that he usually only needs his albuterol inhaler occasionally Will hold off on starting him back on Montelukast at this time Continue Albuterol HFA 1-2 inhalations every 6 hours PRN (5) Vitamin D deficiency: Code(s): E55.9 - Vitamin D deficiency, unspecified Category: Medical Plan: Will recheck his vitamin-D level for follow-up (6) Renal insufficiency: Code(s): N28.9 - Disorder of kidney and ureter, unspecified Category: Medical Plan: His serum creatinine and GFR were still slightly compromised when they were last checked in March 2023 but his numbers have improved significantly from 2022 Will have him recheck his Chem profile and renal function JULIA (7) Primary anal squamous cell carcinoma: Comment: diagnosed in 2018; underwent surgical excision on 12/18/2018; clinical stage T2N0 / stage IIA, p 16 negative. Patient underwent adjuvant Tx with concurrent chemoradiotherapy from 03/18/2019 to 05/19/2019 Code(s): C21.0 - Malignant neoplasm of anus, unspecified Category: Medical Plan: S/P surgical excision in 12/2018, followed by adjuvant Tx with concurrent chemoradiotherapy from 03/18/2019 to 05/19/2019 Follow up with oncology as scheduled for continuing surveillance (8) Bilateral shoulder pain: Code(s): M25.511 - Pain in right shoulder; M25.512 - Pain in left shoulder Category: Medical Qualifiers: Chronicity: unspecified Qualified Code(s): M25.511 - Pain in right shoulder; M25.512 - Pain in left shoulder Plan: Will send him for repeat x-rays of both shoulders for further evaluation Patient has had tendinopathies in his elbow and shoulders in the past and his right shoulder x-rays done back in March 2023 revealed (+) mild right acromioclavicular separation injury of indeterminate chronicity Advised that he will likely need to see orthopedics again for her shoulder pains - we will wait for his x-ray reports first before making a referral to Orthopedics (9) Smoker: Code(s): F17.200 - Nicotine dependence, unspecified, uncomplicated Category: Social Hx Plan: Patient is counseled again on smoking cessation (10) Obesity (BMI 30-39.9): Code(s): E66.9 - Obesity, unspecified Category: Medical Plan: Reinforced diet/exercise as tolerated/lose weight (11) Colon cancer screening: Code(s): Z12.11 - Encounter for screening for malignant neoplasm of colon Category: Medical Plan: His colonoscopy last year was not done due to a lapse in his health insurance coverage, which he states is now resolved Will refer him again to gastroenterology for screening colonoscopy Plan To return in 1 year for his next annual physical examination Orders: Orders XR shoulder LT min 2V 03/01/24 M25.512 - Pain in left shoulder Complete Blood Count Auto Diff 03/01/24 D64.9 - Anemia, unspecified, Z00.00 - Encounter for general adult medical examination without abnormal findings Free T4 (Free Thyroxine) 03/01/24 E03.9 - Hypothyroidism, unspecified, Z00.00 - Encounter for general adult medical examination without abnormal findings Thyroid Stimulating Hormone 03/01/24 E03.9 - Hypothyroidism, unspecified, Z00.00 - Encounter for general adult medical examination without abnormal findings UA CC w/rflx Micro + Cult 03/01/24 R30.0 - Dysuria, Z00.00 - Encounter for general adult medical examination without abnormal findings Vitamin D 25-OH Total 03/01/24 E55.9 - Vitamin D deficiency, unspecified, Z00.00 - Encounter for general adult medical examination without abnormal findings XR shoulder RT min 2V 03/01/24 M25.511 - Pain in right shoulder Comprehensive [place]. Panel Fast 03/01/24 E78.00 - Pure hypercholesterolemia, unspecified, Z00.00 - Encounter for general adult medical examination without abnormal findings Lipid Panel 03/01/24 E78.00 - Pure hypercholesterolemia, unspecified, Z00.00 - Encounter for general adult medical examination without abnormal findings Referrals Gastroenterology Referral Z12.11 - Encounter for screening for malignant neoplasm of colon
== END 2024-03-01 13:26 | disposition home or self-care (01) ==
PROVIDERS: PCP Internal Medicine; Visit Provider Internal Medicine
DX: Z00.00 Encounter for general adult medical examination without abnormal findings (principal); E78.2 Mixed hyperlipidemia; C21.0 Malignant neoplasm of anus, unspecified; E03.9 Hypothyroidism, unspecified; J45.30 Mild persistent asthma, uncomplicated; E55.9 Vitamin D deficiency, unspecified; N28.9 Disorder of kidney and ureter, unspecified; M25.511 Pain in right shoulder; M25.512 Pain in left shoulder; F17.200 Nicotine dependence, unspecified, uncomplicated; E66.9 Obesity, unspecified; Z12.11 Encounter for screening for malignant neoplasm of colon

== ENCOUNTER → 2024-03-01 13:36 | Outpatient (BNV) | payer OTHER, SELFPAY | PROVIDERS: PCP Internal Medicine; Visit Provider Radiology Diagnostic Radiology | DX: M25.512 Pain in left shoulder (principal); M25.511 Pain in right shoulder | CPT/HCPCS: 73030 ==

== ENCOUNTER 2024-03-04 09:36 | Outpatient (REF) | payer OTHER, SELFPAY ==
[2024-03-04 10:01] LABS: MANUAL DIFF FLAG NO
[2024-03-04 10:11] LABS: Basophils Absolute Auto 0.1 X10*3/uL (0.0-0.2); Basophils Percent Auto 1.7 % (0-2); Eosinophils Absolute Auto 0.2 X10*3/uL (0.0-0.4); Eosinophils Percent Auto 2.9 % (0-4); Hematocrit 47.7 % (42.0-52.0); Imm Gran Abs Auto 0.06 X10*3/uL (0.00-0.03); Imm Gran Pct Auto 0.8 % (0.0-0.4); Lymphocytes Absolute Auto 1.9 X10*3/uL (1.2-4.9); Lymphocytes Percent Auto 24.5 % (20-40); Mean Corpuscular HGB Conc 33.5 g/dl (31.0-36.0); Mean Corpuscular Hemoglobin 30.9 pg (27.0-33.0); Mean Corpuscular Volume 92.3 fL (80.0-98.0); Mean Platelet Volume 8.7 fL (9.4-12.4); Monocytes Absolute Auto 0.6 X10*3/uL (0.1-1.2); Monocytes Percent Auto 8.2 % (2-11); Neutrophils Absolute Auto 4.7 x10*3/uL (2.0-8.3); Neutrophils Percent Auto 61.9 % (45-73); Platelet Count 346 X10*3/uL (160-400); Red Blood Count 5.17 X10*6/uL (4.60-5.80); Red Cell Distribution Width 13.9 % (11.0-16.0); White Blood Count 7.6 X10*3/uL (4.8-10.8)
[2024-03-04 10:50] LABS: Appearance Urine Clear; Color Urine Yellow; Glucose Urine UA Negative (Negative); Leukocyte Esterase Urine Negative (Negative); Nitrite Urine Negative (Negative); PH 5.5 (5.0-9.0); Specific Gravity - Urine 1.025 (1.005-1.025); Urine Blood Negative (Negative); Urine Ketones Trace mg/dL (Negative); Urine Protein Negative (Neg-Trace)
[2024-03-04 10:54] LABS: Alanine Aminotransferase 25 U/L (0-40); Albumin Level 4.6 g/dL (3.5-5.0); Alkaline Phosphatase 92 U/L (39-117); Anion Gap 11 (12-20); Aspartate Amino Transferase 24 U/L (5-37); Bilirubin Total 0.2 mg/dL (0.0-1.0); Blood Urea Nitrogen 11 mg/dL (9-16); Calcium 9.7 mg/dL (8.4-10.2); Carbon Dioxide 26 mmol/L (22-29); Chloride 107 mmol/L (96-108); Cholesterol 248 mg/dL (<200); Estimated Glomerular Filt Rate 60; Glucose Fasting 105 mg/dL (60-99); HDL Cholesterol 44 mg/dL (>40); LDL Cholesterol Calculated 159 mg/dL (<100); Potassium 5.2 mmol/L (3.3-5.1); Sodium 139 mmol/L (135-145); Total Protein 8.8 g/dL (6.5-8.0); Triglycerides 225 mg/dL (<150)
[2024-03-04 11:11] LABS: Free T4 (Free Thyroxine) 0.51 ng/dL (0.71-1.85); Thyroid Stimulating Hormone 41.53 uIU/mL (0.32-4.0); Vitamin D 25-OH Total 15.5 ng/mL (>30)
== END 2024-03-04 09:37 | disposition home or self-care (01) ==
LOC: HO.LAB 09:36
PROVIDERS: PCP Internal Medicine; Visit Provider Internal Medicine
DX: Z00.00 Encounter for general adult medical examination without abnormal findings (principal); E03.9 Hypothyroidism, unspecified; E78.00 Pure hypercholesterolemia, unspecified; D64.9 Anemia, unspecified; E55.9 Vitamin D deficiency, unspecified; R30.0 Dysuria
CPT/HCPCS: 36415; 80053; 80061; 81003; 82306; 84439; 84443; 85025

== ENCOUNTER 2024-08-12 12:19 | Day surgery (SDC) | payer OTHER, SELFPAY ==
--- OUTSIDE RECORDS SUMMARY | 2024-07-16 11:05 | XMS_ITS | Clinical Summary ---
Author Organization [employer] Address [address] [place] [address] Care Team Providers Care Hotel Reservation Agent Name Role Phone Unavailable Primary Care Provider Unavailabl e Allergies Active Allergy Reactions Criticality Noted Date Comments Shellfish-Derived Products 9 Medications albuterol 108 (90 Base) MCG/ACT inhaler Inhale 2 puffs every 4 (four) hours if needed. Active cetirizine (ZyrTEC) 5 MG tablet Take 10 mg by mouth in the morning. Active Social History Tobacco Use Types Packs/Day Years Used Date Smoking Tobacco: Former Cigarettes Smokeless Tobacco: Never Tobacco Cessation:Counseling Given: Not Answered Sex and Gender Information Value Date Recorded Sex Assigned at Male 01/03/2022 10:15 AM EDT Legal Sex Male 10:15 AM EDT Gender Identity Male 07/12/2022 1:25 PM EDT Sexual Orientation Straight 01/03/2022 10 :15 AM EDT Last Filed Vital Signs Vital Sign Reading Time Taken Comments Blood Pressure 122/82 07/21/2022 2:24 PM EDT Pulse 85 07/13/2022 3:19 PM EDT Temperature - - Respiratory Rate - - Oxygen Saturation - - Inhaled Oxygen Concentration - - Weight - - Height - - Body Mass Index - - Plan of Treatment Health Maintenance Due Date Last Done Comments CT Colonography 1977 Colonoscopy 1977 Colorectal Cancer Screening 1977 Dental Oral Exam 1977 Dental Prophylaxis 1977 Depression Screening 1977 FIT DNA/Cologuard 1977 FIT 1977 FOBT 1977 HIV Screening 1977 Lipid Panel 1977 SDOH Screening 1977 Sigmoidoscopy 1977 Alcohol/Substance Use Screening 1989 Family Planning (PISQ) 1992 Hepatitis C Screening 1995 Hepatitis B Vaccines (1 of 3 - 19+ 3-dose series) 1996 Dental X-Ray: Bitewings 07/15/2023 07/13/2022 Tobacco Screening 07/22/2023 07/21/2022 COVID-19 Vaccine (3 - 2023-2 5 season) 2023 07/02/2020, 06/11/2020 Influenza Vaccine (#1) 2023 02/22/2022 Dental X-Ray: Full Mouth 07/14/2025 07/13/2022 DTaP/Tdap/Td Vaccines (2 - T d or Tdap) 02/07/2027 02/07/2017 Zoster Vaccines (1 of 2) 2027 RSV Patients and Patients Aged 60 years or older (1 - 1-dose 75+ series) 2052 HIB Vaccines Aged Out No longer eligi ble based on patient's age to complete this topic HPV Vaccines Aged Out No longer eligi ble based on patient's age to complete this topic Hepatitis A Vaccines Aged Out No long er eligible based on patient's age to complete this topic IPV Vaccines Aged Out No longer eligi ble based on patient's age to complete this topic Meningococcal Vaccine Aged Out No ana kanwal eligible based on patient's age to complete this topic Pneumococcal Vaccine: Pediatrics (0 to 5 Years) and At-Risk Patients (6 to 49) Years) Aged Out No longer eligible b ased on patient's age to complete this topic RSV under 20 months Aged Out No longe r eligible based on patient's age to complete this topic Rotavirus Vaccines Aged Out No longer eligible based on patient's age to complete this topic Procedures Procedure Name Priority Date/Time Associated Diagnosis Comments INTRAORAL - COMPLETE SERIES OF RADIOGRAPHIC IMAGES Routine 07/13/2022 3:00 PM EDT Encounter for dental examination from Last 3 Months or Most Recently Relevant to Health Maintenance Insurance [place] AD[place]
[2024-08-08 14:54] VITALS: BMI 31.4
--- NOTE | 2024-08-09 12:58 | P.CONAN_ITS ---
Documented by User: Gale Toribio NP 08/09/24 12:59 HPI - Anesthesia Eval Consult details Narrative: 49yo M for Colonoscopy PMFSH Active Problems Active Problems: All Active Problems Obesity (BMI 30-39.9) (Acute) Bilateral shoulder pain (Acute) Annual physical exam (Acute) Pre-op examination (Acute) Colon cancer screening (Acute) Mixed hyperlipidemia (Acute) Vitamin D deficiency (Acute) Acquired hypothyroidism (Acute) Fatigue (Acute) Snoring (Acute) Arthralgia (Acute) Renal insufficiency (Acute) Allergic rhinitis (Acute) Pure hypercholesterolemia (Acute) Asthma (Acute) Periscapular pain (Acute) Rotator cuff tear arthropathy of left shoulder (Acute) Tendinopathy of left shoulder (Acute) Smoker (Acute) Primary anal squamous cell carcinoma (Chronic) Past Medical History Medical History Obesity (BMI 30-39.9) Annual physical exam Right shoulder pain Overweight (BMI 25.0-29.9) Anal squamous cell carcinoma Mixed hyperlipidemia Vitamin D deficiency Acquired hypothyroidism Allergic rhinitis Pure hypercholesterolemia Rotator cuff tear arthropathy of left shoulder Diverticulitis Asthma Family History Family History Father No problems noted. 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) Social History Social History Household Members: Children and None Housing: House Are you a primary careers counsellor to a significant other at home: No Do you presently have visiting nurse or other home services: No Alcohol intake: former Patient Tobacco Use Status: Current everyday Tobacco user Tobacco use type: Cigarette Cigarette Packs Per Day: 0.5 Cigarettes Per Day: 10.0 e-Cigarette/Vaping Use: Never Used Second Hand Smoke Exposure: No Use of substances other than those prescribed or required for medical reasons: No Advance Directives: No Advance Directives Information Provided: Yes Advance Directives Date on File: 02/13/19 Poor oral hygiene: No service: No Current occupational status: employed Current occupation: maintenance, right handed Current occupational exposures/hazards: No Cognitive needs: No Hearing needs: No Vision needs: Yes Meds Allergies Allergy/AdvReac Type Severity Reaction Status Date / Time shellfish derived Allergy Unknown Anaphylaxis Verified 03/01/24 13:15 varenicline Allergy Unknown mood Verified 03/01/24 13:15 swings, vomiting barium sulfate AdvReac Unknown mood Verified 03/01/24 13:15 swings, vomiting ENVIROMENTAL Allergy Intermediate SWOLLEN Uncoded 03/01/24 13:15 EYES Exam Height,Weight and Vital Signs: Height 5 ft 11 in Weight 102.002 kg Assessment and Plan Assessment Anesthesia Assessment: Chart Reviewed Documented by User: Vik Lucio MD 08/12/24 14:06 PMFSH Active Problems Active Problems: tAll Active Problems Obesity (BMI 30-39.9) (Acute) Bilateral shoulder pain (Acute) Annual physical exam (Acute) Pre-op examination (Acute) Colon cancer screening (Acute) Mixed hyperlipidemia (Acute) Vitamin D deficiency (Acute) Acquired hypothyroidism (Acute) Fatigue (Acute) Snoring (Acute) Arthralgia (Acute) Renal insufficiency (Acute) Allergic rhinitis (Acute) Pure hypercholesterolemia (Acute) Asthma (Acute) Periscapular pain (Acute) Rotator cuff tear arthropathy of left shoulder (Acute) Tendinopathy of left shoulder (Acute) Smoker (Acute) Primary anal squamous cell carcinoma (Chronic) Past Medical History Medical History Obesity (BMI 30-39.9) Annual physical exam Right shoulder pain Overweight (BMI 25.0-29.9) Anal squamous cell carcinoma Mixed hyperlipidemia Vitamin D deficiency Acquired hypothyroidism Allergic rhinitis Pure hypercholesterolemia Rotator cuff tear arthropathy of left shoulder Diverticulitis Asthma Family History Family History Father No problems noted. 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) History of Problems with Anesthesia: No Social History Social History Household Members: Children and None Housing: House Are you a primary careers counsellor to a significant other at home: No Do you presently have visiting nurse or other home services: No Alcohol intake: former Patient Tobacco Use Status: Current everyday Tobacco user Tobacco use type: Cigarette Cigarette Packs Per Day: 0.5 Cigarettes Per Day: 10.0 e-Cigarette/Vaping Use: Never Used Second Hand Smoke Exposure: No Use of substances other than those prescribed or required for medical reasons: No Advance Directives: No Advance Directives Information Provided: Yes Advance Directives Date on File: 02/13/19 Poor oral hygiene: No service: No Current occupational status: employed Current occupation: maintenance, right handed Current occupational exposures/hazards: No Cognitive needs: No Hearing needs: No Vision needs: Yes Meds Allergies Allergy/AdvReac Type Severity Reaction Status Date / Time shellfish derived Allergy Unknown Anaphylaxis Verified 03/01/24 13:15 varenicline Allergy Unknown mood Verified 03/01/24 13:15 swings, vomiting barium sulfate AdvReac Unknown mood Verified 03/01/24 13:15 swings, vomiting ENVIROMENTAL Allergy Intermediate SWOLLEN Uncoded 03/01/24 13:15 EYES Active Medications: thyroid and asthma medications Exam Exam Date and Time: 08/12/2024 Airway Mallampati Class: II TM Dist: >3cm Neck ROM: Full Loose/Missing/Broken Teeth: No Heart: rrr Lungs: cta Assessment and Plan Assessment Anesthesia Assessment: Anesthesia Plan Discussed Final Anesthetic Review Family History of Problems with Anesthesia: No History of Problems with Anesthesia: No NPO: Yes ASA Class: II Final Preanesthetic Review: No Changes in Pt Med Stat, Meds/Allgs Chart Reviewed, Consent Obtained/Reviewed and Anes Risks/Benef Reviewed Patient Risk: Low Procedure Risk: Low Anesthetic Plan Anesthetic Plan: MAC: Disposition: Standard PACU
[2024-08-12 12:48] VITALS: BMI 30.3
[2024-08-12 12:58] VITALS: BP 109/73; PULSE 80; RESP 16; TEMP 36.3; O2SAT 96
[2024-08-12] MEDS: Lactated Ringers 1,000 ML 100 ML IVCONT (13:12)
--- NOTE | 2024-08-12 13:41 | MHC.SHP ---
Pre-Procedural Eval Section A - 24 Hr Update-Section A only Date of Service: 08/12/24 The patient is an INPATIENT: No The patient has been examined within 24 hours of the surgical procedure. The History & Physical has been completed within 30 days and I have reviewed it.: No Section B - Complete if H&P > 30 days Chief Complaint: Colon cancer screening Details of Present Illness: 12/2018 Pt was diagnosed with perianal squamous cell carcinoma. He had undergone excision of a skin lesion in the perianal area. He underwent treatment with chemotherapy and radiation and is being followed by Dr. Lama. 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)) Allergies: Allergies Allergy/AdvReac Type Severity Reaction Status Date / Time shellfish derived Allergy Unknown Anaphylaxis Verified 03/01/24 13:15 varenicline Allergy Unknown mood Verified 03/01/24 13:15 swings, vomiting barium sulfate AdvReac Unknown mood Verified 03/01/24 13:15 swings, vomiting ENVIROMENTAL Allergy Intermediate SWOLLEN Uncoded 03/01/24 13:15 EYES Review of Systems Sugical H&P ROS: Negative: Constitution, Cardiovascular, Respiratory and Gastrointestinal Exam Surgical H&P Exam: Normal: Heart, Normal: Lungs, Normal: Extremities and Normal: Abdomen Plan Diagnosis/Plan: Unchanged I have reviewed the history and physical and performed a pertinent physical examination on my patient. No changes have occurred unless specified. Time Spent With Patient Time: Total time managing care of this patient today ____ minutes.
--- NOTE | 2024-08-12 14:30 | HO.OPN-COLON ---
Colonoscopy Operative Note Operative Note Date of Service: 08/12/24 Narrative: COLONOSCOPY TILL CECUM WITH SNARE POLYPECTOMY AND HEMOCLIP PLACEMENT Pre-op diagnosis: Colon cancer screening, history of anal cancer. (12/2018 Pt was diagnosed with perianal squamous cell carcinoma. He had undergone excision of a skin lesion in the perianal area. He underwent treatment with chemotherapy and radiation and is being followed by Dr. Lama). Post-op diagnosis:? Colon polyp, Diverticulosis, hemorrhoids Endoscopist:? Baldo Hoffman MD Anesthesia:?MAC Consent: Indications for the procedure and potential complications of bleeding, perforation, reaction to medications and missed diagnosis were discussed with the patient and informed consent was obtained. Instrument: Olympus CF H 190 L variable stiffness adult colonoscope Monitoring: Vital signs and clinical assessment, intermittent blood pressure monitoring, continuous EKG monitoring, Pulse oximetry and Carbon Dioxide monitoring were done throughout the procedure. Please see anesthesia flowsheet. Colon withdrawl time was 20 minutes. Procedure: The patient was placed in the left lateral decubitis position and pre-procedure medications were administered. After a digital rectal examination of the ano-rectum, the video colonoscope was inserted into the rectum and advanced through the colon to the cecum. The colonoscope was slowly withdrawn in a retrograde panoramic fashion and the colon mucosa was carefully examined including a retroflexed view of the rectum. Findings and interventions are described below. Procedure Difficulty: Colon was long and tortuous and there was some loop formation Findings: Terminal Ileum: Not evaluated Cecum: Partially evaluated Ascending Colon: Partially evaluated Transverse Colon: Partially evaluated Descending Colon: A 10-12 mm sessile polyp at 60 cms - removed with a stiff hot snare. Polypectomy site was closed with 1 hemoclip. Moderate diverticulosis Sigmoid Colon: Severe diverticulosis with luminal narrowing Rectum: Normal Ano-rectum: Moderate internal hemorrhoids Michelle-anal skin tags and de-pigmentation of the perianal skin (likely from past radiation therapy) Colon preparation: Good in the left colon and poor in the right and transverse colon despite copious irrigation. [place] Bowel Preparation Scale Right colon; 1 Transverse colon: 1 Left colon; 2 (0 = Unprepared colon segment with mucosa not seen due to solid stool that cannot be cleared. 1 = Portion of mucosa of the colon segment seen, but other areas of the colon segment not well seen due to staining, residual stool and/or opaque liquid. 2 = Minor amount of residual staining, small fragments of stool and/or opaque liquid, but mucosa of colon segment seen well. 3 = Entire mucosa of colon segment seen well with no residual staining, small fragments of stool or opaque liquid) Impression and Post Procedure Diagnosis: Colonoscopy Findings: One medium sized polyp was removed Moderate to severe diverticulosis seen in the left colon Moderate hemorrhoids on retroflexed exam. Plan: I will send a letter with biopsy results Repeat Colonoscopy in 1 year if polyps are adenomatous and due to suboptimal prep in the right and transverse colon. (dulcolax 10 mg daily x 5 days prior to next colon appt and advise pt to finish the prep even if stool appears to be clear). Pt reported not finishing the 2nd haf of the Miralax prep. Above findings were reviewed with the patient and relevant handouts were given and the discharge area. BIOPSIES SHOWED: Colon, descending at 60 cm, polypectomy: Hyperplastic polyp Letter sent to the patient with biopsy results. Patient placed on the colonoscopy recall list for repeat colonoscopy in 1 year.
[2024-08-12 15:31] VITALS: BP 91/55; PULSE 82; RESP 16; TEMP 36.1; O2SAT 95
[2024-08-12 15:46] VITALS: BP 120/68; PULSE 90; RESP 18; TEMP 36.2; O2SAT 97
== END 2024-08-12 16:05 | disposition home or self-care (01) ==
PROVIDERS: PCP Internal Medicine; Visit Provider Internal Medicine Gastroenterology
PROC: 0DJD8ZZ Inspection of Lower Intestinal Tract, Via Natural or Artificial Opening Endoscopic (ICD-10-PCS; CPT 45378; principal; 2024-08-12 13:50)
DX: Z12.11 Encounter for screening for malignant neoplasm of colon (principal); K63.5 Polyp of colon; K57.30 Diverticulosis of large intestine without perforation or abscess without bleeding; K64.8 Other hemorrhoids; K64.4 Residual hemorrhoidal skin tags; Z87.19 Personal history of other diseases of the digestive system; Z85.048 Personal history of other malignant neoplasm of rectum, rectosigmoid junction, and anus; Z92.21 Personal history of antineoplastic chemotherapy; Z92.3 Personal history of irradiation; N28.9 Disorder of kidney and ureter, unspecified; E78.00 Pure hypercholesterolemia, unspecified; E03.9 Hypothyroidism, unspecified; J45.909 Unspecified asthma, uncomplicated; F17.210 Nicotine dependence, cigarettes, uncomplicated; Z88.8 Allergy status to other drugs, medicaments and biological substances
CPT/HCPCS: 45385; 88305; J2704; J3010

== ENCOUNTER → 2024-08-12 12:19 | Outpatient (BNV) | payer OTHER, SELFPAY | PROVIDERS: PCP Internal Medicine; Visit Provider Internal Medicine Gastroenterology | DX: Z12.11 Encounter for screening for malignant neoplasm of colon (principal); Z85.048 Personal history of other malignant neoplasm of rectum, rectosigmoid junction, and anus; D12.4 Benign neoplasm of descending colon; K57.90 Diverticulosis of intestine, part unspecified, without perforation or abscess without bleeding; K64.8 Other hemorrhoids; K64.4 Residual hemorrhoidal skin tags; Z91.199 Patient's noncompliance with other medical treatment and regimen due to unspecified reason | CPT/HCPCS: 45385 ==